=== PATIENT | male | born 1960 | race Caucasian/White ===

== ENCOUNTER 2022-07-13 20:17 | Emergency (ER) | payer BC, SELFPAY ==
[2022-07-13] MEDS ORDERED: Ipratropium/Albuterol 3 ML NEB ONE (20:42)
[2022-07-13] MEDS ORDERED: Dexamethasone 10 MG/ML VIAL ONE (20:42)
== END 2022-07-13 21:27 | disposition home or self-care (01) ==
LOC: MADERS 20:17 → EDSEX 20:17 → MADERS 21:27
DX: R05.9 Cough, unspecified (principal)
CPT/HCPCS: 71045; 87807; 96372; J1100; J7620